=== PATIENT | male | born 1995 | race Hispanic/Latino ===

== ENCOUNTER 2017-08-08 11:52 | Emergency (ER) | payer SELFPAY | END 2017-08-08 12:35 | disposition home or self-care (01) | LOC: EDH 11:52 | DX: F41.1 Generalized anxiety disorder (principal); R07.89 Other chest pain | CPT/HCPCS: 93005; 99281 ==

== ENCOUNTER 2019-01-07 19:14 | Emergency (ER) | payer SELFPAY | END 2019-01-07 19:46 | disposition home or self-care (01) | LOC: EDH 19:14 | DX: F41.9 Anxiety disorder, unspecified (principal); Z88.0 Allergy status to penicillin; Z98.890 Other specified postprocedural states ==

== ENCOUNTER 2019-01-17 12:52 | Emergency (ER) | payer SELFPAY ==
[2019-01-17] MEDS ORDERED: ACETAMINOPHEN EXTRA STRENGTH 500 MG TABLET ONE ×2 (14:39→14:41)
== END 2019-01-17 15:04 | disposition home or self-care (01) ==
LOC: EDH 12:52
DX: R07.89 Other chest pain (principal); F41.9 Anxiety disorder, unspecified; Z88.0 Allergy status to penicillin; Z87.891 Personal history of nicotine dependence
CPT/HCPCS: 93005

== ENCOUNTER 2025-04-22 12:58 | Emergency (ER) | payer BC, OTHER ==
[~2025-04-22] VITALS: Ht 170.2 cm; Wt 103.0 kg
[2025-04-22 13:00] VITALS: BP 143/86; PULSE 80; RESP 18; TEMP 98.5
--- NOTE | 2025-04-22 13:23 | ERN ---
General Chief Complaint: Eye Problems Stated Complaint: BLURRY EYE Time Seen by MD: 13:15 Time Seen by Midlevel: 13:15 Source: patient History of Present Illness Initial Comments 29-year-old male with a past medical history of anxiety and a previous traumatic brain injury presenting to the emergency department for evaluation following an episode of blurred vision to his left eye. Patient states he was given a presentation in front of people when the symptoms started. The symptoms lasted 20 minutes. He was evaluated by a school nurse and was told to report to the ER for further evaluation. Allergies: Coded Allergies: Penicillins (Unverified Allergy, Unknown, 01/07/19) Past Medical History Past Medical History: No Pertinent History Past Surgical History: None ROS Dictation CONSTITUTIONAL: Negative except for HPI HEAD/FACE: Negative except for HPI EENT: Negative except for HPI RESPIRATORY: Negative except for HPI GASTROINTESTINAL/ABDOMINAL: Negative except for HPI GENITOURINARY: Negative except for HPI MUSCULOSKELETAL: Negative except for HPI INTEGUMENTARY: Negative except for HPI NEUROLOGICAL/PSYCH: Negative except for HPI HEMATOLOGIC/LYMPHATIC: Negative except for HPI All Systems Negative, Except as noted above. 13 point review of systems assessed and all negative except for above. Physical Exam Physical Exam Dictation Vital Signs reviewed General Appearance: Alert, oriented x 3, no acute distress, well developed, nourished. Head and Face: non-traumatic. Eyes: PERRL, pink conjunctivas, eyelid no trauma, anterior chamber with arcus senilis. Ears: Pinnas intact and no signs of trauma or erythema ear canals clear and no discharge TM no erythema Nose: No discharge, no bleeding. Oropharynx: Mouth normal, tongue pink, pharynx clear,no erythema, tonsils no exudates, no abscesses noted, mucous membrane moist Neck: Supple, non-tender, no thyromegaly, no masses, no JVD, no bruits Breast:Deferred Chest:No tenderness, no crepitus, no paradoxical movement, no retractions Lungs:Clear, well-ventilated, symmetric, no rales, no wheezing, no rhonchi, no stridor, good breath sounds bilaterally Heart: Regular rate, regular rhythm, no murmur, no gallops Vascular: no peripheral edema, Abdomen: Soft, positive bowel sounds, nondistended, no guarding, nontender, no rebound, no masses no hepatomegaly, no splenomegaly, no Wilson's sign, no hernias. Rectal: Deferred Genital: Deferred Neurological: Normal speech, motor function intact, sensory function intact Musculoskeletal: Neck nontender, full range of motion, back nontender, full range of motion, Extremities: nontender, full range of motion Skin: Color pink, dry, no turgor, no rash, no lacerations, no abrasions, no contusions. Lymphatic: Deferred Results Laboratory and Microbiology Lab and Micro Result Laboratory Tests Test 04/22/25 13:12 Whole Blood Glucose 95 MG/DL (70-110) Labs Reviewed?: Yes MDM MDM: Differential diagnosis: Anxiety, wellness examination, There are no social concerns with this patient. Prescription drug management Prescriptions will include: None Medical management and examination interpretation discussions were had by me with other qualified healthcare professionals as indicated for the patient's care. ED Course Vital Signs Date Time Temp Pulse Resp B/P (MAP) Pulse Ox O2 Delivery O2 Flow Rate FiO2 04/22/25 13:00 98.4 80 18 143/86 98 DX & DISP Disposition: Discharge Departure Impression: Primary Impression: Wellness examination Condition: Stable Additional Instructions: Your physical examination is unremarkable. You are cleared for work and may return on April 23, 2025 with no physical limitations. Referrals: SELF,REFERRAL (PCP) Time of Disposition: 13:15 I have reviewed the case, and I agree with, Diagnosis and Plan I performed the substantive portion of the visit. I have reviewed and personally made and approve the management plan that is documented in the note by myself or the JAMES. I acknowledge for responsibility for the patient's managem ent plan. AIDEN SCHNEIDER PAC Apr 22, 2025 13:23
== END 2025-04-22 14:12 | disposition home or self-care (01) ==
LOC: EDH 12:58
DX: H53.8 Other visual disturbances (principal); Z88.0 Allergy status to penicillin
CPT/HCPCS: 82948; 99282; 99283